=== PATIENT | female | born 1995 | race American Indian/Alaskan Native ===

== ENCOUNTER 2021-09-10 21:50 | Emergency (ER) | payer MEDICAID ==
[2021-09-10 22:44] VITALS: BP 114/54
[2021-09-11] MEDS ORDERED: AZITHROMYCIN 1 GM ORAL PWDR PACKET PO ONE (02:42)
[2021-09-11] MEDS ORDERED: metroNIDAZOLE 500 MG TAB PO ONE (02:42)
[2021-09-11] MEDS ORDERED: LIDOCAINE-MPF (1%) 10 MG/1 ML VIAL 5 ML INFILTRATI ONE (02:42)
--- NOTE | 2021-09-11 02:46 | Emergency Department Report ---
ED Female HPI - General Chief complaint: Urogenital-Female Stated complaint: VAGINAL DISCHARGE/ODOR Time Seen by Provider: 09/11/21 02:37 Source: patient, family Mode of arrival: Ambulatory Limitations: No Limitations - History of Present Illness Initial comments: Patient is a 26-year-old F [place] female who is presenting with vaginal discharge. States she has some mild crampy lower abdominal discomfort. States shows copious amounts of thick discharge. She does have a new sexual partner and no condoms have been used. Denies fevers chills. No dysuria. - Related Data Allergies Allergy/AdvReac Type Severity Reaction Status Date / Time No Known Allergies Allergy Unverified 09/10/21 23:29 ED Review of Systems ROS: Stated complaint: VAGINAL DISCHARGE/ODOR Other details as noted in HPI Comment: All other systems reviewed and negative ED Past Medical Hx - Past Medical History Previous Medical History?: No - Surgical History Past Surgical History?: No ED Physical Exam - General Limitations: No Limitations General appearance: alert, in no apparent distress - Head Head exam: Present: atraumatic, normocephalic - Eye Eye exam: Present: normal appearance - ENT ENT exam: Present: mucous membranes moist - Neck Neck exam: Present: normal inspection - Respiratory Respiratory exam: Present: normal lung sounds bilaterally. Absent: respiratory distress - Cardiovascular Cardiovascular Exam: Present: regular rate, normal rhythm. Absent: systolic murmur, diastolic murmur, rubs, gallop - GI/Abdominal GI/Abdominal exam: Present: soft, normal bowel sounds. Absent: distended, tenderness, guarding, rebound - Extremities Exam Extremities exam: Present: normal inspection - Back Exam Back exam: Present: normal inspection - Neurological Exam Neurological exam: Present: alert, oriented X3 - Psychiatric Psychiatric exam: Present: normal affect, normal mood - Skin Skin exam: Present: warm, dry, intact, normal color. Absent: rash ED Course Vital Signs 09/10/21 22:43 Temperature 99.2 F Pulse Rate 76 Respiratory 18 Rate Blood Pressure 114/54 O2 Sat by Pulse 100 Oximetry ED Medical Decision Making - Medical Decision Making Patient be treated for gonorrhea chlamydia and trichomonas and discharged home Critical care attestation.: If time is entered above; I have spent that time in minutes in the direct care of this critically ill patient, excluding procedure time. ED Disposition Clinical Impression: Acute cervicitis Disposition: HOME / SELF CARE / HOMELESS Is pt being admited?: No Does the pt Need Aspirin: No Condition: Stable Instructions: Cervicitis (ED), Cervicitis Referrals: TARIQ PATTERSON MD [Staff Physician] - 3-5 Days Forms: STI Treatment and Prevention Time of Disposition: 02:46
[2021-09-11] MEDS ORDERED: LIDOCAINE (1%) 10 MG/1 ML VIAL 20 ML MDV ONE (03:10)
== END 2021-09-11 03:35 | disposition home or self-care (01) ==
LOC: ED 21:50
DX: N72 Inflammatory disease of cervix uteri (principal)
CPT/HCPCS: 96372; 99282; J0696; J3490

== ENCOUNTER 2022-01-04 13:06 | Emergency (ER) | payer MEDICAID ==
[2022-01-04 13:34] VITALS: BP 95/48
[2022-01-04 14:20] LABS: Bilirubin,Urine NEG (Negative); Blood,Urine NEG (Negative); Color,Urine Yellow (Yellow); Mucus,Urine FEW /HPF; Protein,Urine <15 mg/dL mg/dL (Negative); RBC,Urine < 1.0 /HPF (0.0-6.0); Urobilinogen,Urine < 2.0 mg/dL (<2.0); WBC,Urine < 1.0 /HPF (0.0-6.0)
[2022-01-04 14:28] LABS: HCG Qualitative,Urine Negative (Negative)
== END 2022-01-04 19:00 | disposition left against medical advice (07) ==
LOC: ED 13:06
DX: R52 Pain, unspecified (principal); Z53.21 Procedure and treatment not carried out due to patient leaving prior to being seen by health care provider
CPT/HCPCS: 81001; 81025